=== PATIENT | male | born 1960 | race Caucasian/White ===

== ENCOUNTER 2016-06-14 10:45 | Outpatient (CLI) ==
[2013-12-22 20:53] VITALS: BMI 27.2
[2016-06-14 11:02] LABS: BASOPHILS % (AUTO) 0.7 % (0.0-3.0); EOSINOPHILS # (AUTO) 0.2 K/ul (0.0-0.7); EOSINOPHILS % (AUTO) 3.4 % (0.0-7.0); HEMATOCRIT 49.6 % (42.0-52.0); HEMOGLOBIN 16.6 g/dl (14.0-18.0); IMMATURE GRANULOCYTE % (AUTO) 0.3 % (0.0-5.0); LYMPHOCYTES # (AUTO) 1.5 K/uL (0.60-3.4); MEAN CORPUSCULAR HEMOGLOBIN 32.3 pg (27.0-31.0); MEAN CORPUSCULAR HGB CONC 33.5 (31.8-35.4); MEAN CORPUSCULAR VOLUME 96.5 fl (80.0-94.0); MONOCYTES # (AUTO) 0.5 K/uL (0.4-2.0); MONOCYTES % (AUTO) 8.6 (0-10); NEUTROPHILS # (AUTO) 3.8 K/ul (2.0-6.9); PLATELET COUNT 217 10^3/uL (140-440); RED BLOOD COUNT 5.14 10^6/ul (4.70-6.10); WHITE BLOOD COUNT 6.13 K/ul (4.2-10.2)
[2016-06-14 11:21] LABS: ALBUMIN 3.6 g/dL (3.4-5.0); BILIRUBIN,DIRECT 0.26 mg/dL (0.00-0.30); BILIRUBIN,TOTAL 0.7 mg/dL (0.00-1.20); CREATININE 1.2 mg/dL (0.60-1.10); TOTAL PROTEIN 6.7 g/dL (6.4-8.2)
== END 2016-06-14 10:46 | disposition home or self-care (01) ==
LOC: LAB 10:45
PROVIDERS: ATTEND Internal Medicine Rheumatology
DX: M06.9 Rheumatoid arthritis, unspecified (principal); Z79.899 Other long term (current) drug therapy
CPT/HCPCS: 36415; 80076; 82565; 84520; 85025

== ENCOUNTER 2016-09-13 10:14 | Outpatient (CLI) ==
[2013-12-22 20:53] VITALS: BMI 27.2
[2016-09-13 10:52] LABS: BASOPHILS % (AUTO) 0.5 % (0.0-3.0); EOSINOPHILS # (AUTO) 0.1 K/ul (0.0-0.7); EOSINOPHILS % (AUTO) 0.9 % (0.0-7.0); HEMATOCRIT 52.1 % (42.0-52.0); HEMOGLOBIN 17.7 g/dl (14.0-18.0); IMMATURE GRANULOCYTE % (AUTO) 0.5 % (0.0-5.0); LYMPHOCYTES # (AUTO) 1.3 K/uL (0.60-3.4); LYMPHOCYTES % (AUTO) 15.9 (10.0-50.0); MEAN CORPUSCULAR HEMOGLOBIN 31.9 pg (27.0-31.0); MONOCYTES # (AUTO) 0.4 K/uL (0.4-2.0); MONOCYTES % (AUTO) 5.1 (0-10); NEUTROPHILS # (AUTO) 6.1 K/ul (2.0-6.9); NEUTROPHILS % (AUTO) 77.1; PLATELET COUNT 233 10^3/uL (140-440); RED BLOOD COUNT 5.54 10^6/ul (4.70-6.10); WHITE BLOOD COUNT 7.88 K/ul (4.2-10.2)
[2016-09-13 11:12] LABS: ALBUMIN 3.6 g/dL (3.4-5.0); BILIRUBIN,DIRECT 0.18 mg/dL (0.00-0.30); BILIRUBIN,TOTAL 0.49 mg/dL (0.00-1.20); CREATININE 1.29 mg/dL (0.60-1.10)
== END 2016-09-13 10:15 | disposition home or self-care (01) ==
LOC: LAB 10:14
PROVIDERS: ATTEND Internal Medicine Rheumatology
DX: M06.9 Rheumatoid arthritis, unspecified (principal); Z79.899 Other long term (current) drug therapy
CPT/HCPCS: 36415; 80076; 82565; 84520; 85025

== ENCOUNTER 2016-12-15 10:34 | Outpatient (CLI) ==
[2013-12-22 20:53] VITALS: BMI 27.2
[2016-12-15 11:20] LABS: BASOPHILS # (AUTO) 0.1 K/uL (0-0.2); BASOPHILS % (AUTO) 0.6 % (0.0-3.0); EOSINOPHILS # (AUTO) 0.2 K/ul (0.0-0.7); EOSINOPHILS % (AUTO) 1.9 % (0.0-7.0); HEMATOCRIT 53.8 % (42.0-52.0); HEMOGLOBIN 18.7 g/dl (14.0-18.0); IMMATURE GRANULOCYTE % (AUTO) 0.4 % (0.0-5.0); LYMPHOCYTES # (AUTO) 1.4 K/uL (0.60-3.4); LYMPHOCYTES % (AUTO) 16.1 (10.0-50.0); MEAN CORPUSCULAR HEMOGLOBIN 32.6 pg (27.0-31.0); MEAN CORPUSCULAR HGB CONC 34.8 (31.8-35.4); MEAN CORPUSCULAR VOLUME 93.7 fl (80.0-94.0); MONOCYTES # (AUTO) 1.1 K/uL (0.4-2.0); MONOCYTES % (AUTO) 12.4 (0-10); NEUTROPHILS # (AUTO) 5.9 K/ul (2.0-6.9); NEUTROPHILS % (AUTO) 68.6; PLATELET COUNT 195 10^3/uL (140-440); RED BLOOD COUNT 5.74 10^6/ul (4.70-6.10); WHITE BLOOD COUNT 8.57 K/ul (4.2-10.2)
[2016-12-15 11:37] LABS: ALBUMIN 3.6 g/dL (3.4-5.0); ALBUMIN/GLOBULIN RATIO 1.13; ANION GAP 15.6; BILIRUBIN,DIRECT 0.21 mg/dL (0.00-0.30); BILIRUBIN,TOTAL 0.6 mg/dL (0.00-1.20); BUN/CREATININE RATIO 8.47; CREATININE 1.18 mg/dL (0.60-1.10); POTASSIUM 3.6 mmol/L (3.5-5.1); TOTAL PROTEIN 6.8 g/dL (6.4-8.2)
[2016-12-16 08:22] LABS: TESTOSTERONE 1061 ng/dL (348-1197)
== END 2016-12-15 10:35 | disposition home or self-care (01) ==
LOC: LAB 10:34
PROVIDERS: ATTEND Internal Medicine Rheumatology
DX: E29.1 Testicular hypofunction (principal); M06.9 Rheumatoid arthritis, unspecified; Z79.899 Other long term (current) drug therapy; Z12.5 Encounter for screening for malignant neoplasm of prostate
CPT/HCPCS: 36415; 80053; 82248; 84403; 85025

== ENCOUNTER 2017-02-14 14:40 | Outpatient (CLI) ==
[2013-12-22 20:53] VITALS: BMI 27.2
[2017-02-14 15:02] LABS: BASOPHILS # (AUTO) 0.1 K/uL (0-0.2); BASOPHILS % (AUTO) 0.9 % (0.0-3.0); EOSINOPHILS # (AUTO) 0.3 K/ul (0.0-0.7); EOSINOPHILS % (AUTO) 4.1 % (0.0-7.0); HEMATOCRIT 42.3 % (42.0-52.0); HEMOGLOBIN 15.2 g/dl (14.0-18.0); IMMATURE GRANULOCYTE % (AUTO) 0.5 % (0.0-5.0); LYMPHOCYTES # (AUTO) 1.7 K/uL (0.60-3.4); LYMPHOCYTES % (AUTO) 26.7 (10.0-50.0); MEAN CORPUSCULAR HEMOGLOBIN 32.1 pg (27.0-31.0); MEAN CORPUSCULAR HGB CONC 35.9 (31.8-35.4); MEAN CORPUSCULAR VOLUME 89.4 fl (80.0-94.0); MONOCYTES # (AUTO) 0.7 K/uL (0.4-2.0); MONOCYTES % (AUTO) 10.7 (0-10); NEUTROPHILS # (AUTO) 3.6 K/ul (2.0-6.9); NEUTROPHILS % (AUTO) 57.1; PLATELET COUNT 183 10^3/uL (140-440); RED BLOOD COUNT 4.73 10^6/ul (4.70-6.10); WHITE BLOOD COUNT 6.33 K/ul (4.2-10.2)
[2017-02-14 15:46] LABS: ALBUMIN 3.2 g/dL (3.4-5.0); ALBUMIN/GLOBULIN RATIO 0.97; ANION GAP 11.5; BILIRUBIN,DIRECT 0.12 mg/dL (0.00-0.30); BILIRUBIN,TOTAL 0.36 mg/dL (0.00-1.20); BUN/CREATININE RATIO 9.17; CALCIUM 9.7 mg/dL (8.2-10.2); CHOL/HDL RATIO 6.3 (4.5-6.4); CREATININE 1.09 mg/dL (0.60-1.10); POTASSIUM 3.5 mmol/L (3.5-5.1); TOTAL PROTEIN 6.5 g/dL (6.4-8.2)
[2017-02-15 06:10] LABS: TESTOSTERONE 331 ng/dL (264-916)
== END 2017-02-14 14:41 | disposition home or self-care (01) ==
LOC: LAB 14:40
PROVIDERS: ATTEND Internal Medicine Rheumatology
DX: Z51.81 Encounter for therapeutic drug level monitoring (principal); Z79.899 Other long term (current) drug therapy; R53.83 Other fatigue; E29.1 Testicular hypofunction; M06.9 Rheumatoid arthritis, unspecified
CPT/HCPCS: 36415; 80053; 80061; 82248; 84403; 84439; 84443; 85025

== ENCOUNTER 2017-06-07 11:37 | Outpatient (CLI) ==
[2013-12-22 20:53] VITALS: BMI 27.2
== END 2017-06-07 11:38 | disposition home or self-care (01) ==
LOC: LAB 11:37
PROVIDERS: ATTEND Internal Medicine Rheumatology
DX: E78.5 Hyperlipidemia, unspecified (principal); E29.1 Testicular hypofunction; M06.9 Rheumatoid arthritis, unspecified; Z79.899 Other long term (current) drug therapy
CPT/HCPCS: 36415; 80076; 85025

== ENCOUNTER 2017-06-20 10:49 | Outpatient (CLI) ==
[2013-12-22 20:53] VITALS: BMI 27.2
--- NOTE | 2017-06-20 13:56 | MRI ---
EXAM: MRI left shoulder without contrast. HISTORY: Possible torn ligament. No left shoulder surgery reported. Fall. Limited range of motion . TECHNIQUE: Using a local coil on a high field strength magnet multiplanar multisequence magnet reson ance imaging performed of the left shoulder without intravenous or intra-articular gadolinium contras t. COMPARISON: Four view plain film examination left shoulder 03/27/2012. FINDINGS: A predominate Type I acromion present. Coracoacromial ligament/arch intact without defini tive thickening. There is however a moderate degree of left acromioclavicular joint degenerative art hrosis/osteoarthrosis. Deltoid musculature shows some mild proximal strain. Free fluid throughout t he subacromial/subdeltoid space. Muscle bulk of the rotator cuff tear shows no overt atrophy. Marked diffuse supraspinatus tendinosis over the insertion and critical zone of view. Large full-thickness/full width supraspinatus tendon tear. Approximate 20 mm of distal tendon end retraction. This area of supraspinatus tendon tear jyothi sures 24 mm AP. Posterior to this level there is marked diffuse infraspinatus tendinosis with full-t hickness extension involving more cranial insertional infraspinatus tendon fibers. There are intact more posterior inferior/caudal infraspinatus tendon fibers. Inferior to this level there are intact teres minor tendon fibers. Anterior intact subscapularis tendon fibers. The long head of the biceps tendon shows intact fibers located in expected position within the bicipital groove and within mackenzie l limits signal intensity and morphology. The left humeral head seated. No left glenohumeral joint centered subchondral bone marrow edema or b one erosions. Early left glenohumeral joint osteoarthrosis. Left glenohumeral joint effusion. Left glenoid labrum grossly intact on this non-arthrographic examination. Left glenoid labrum grossly in tact on this non-arthrographic examination.. IMPRESSION: Moderate left acromioclavicular joint degenerative arthrosis/osteoarthrosis. Marked diffuse supraspinatus tendinosis. Large full-thickness/full width tear as described. Free fl uid throughout the subacromial/subdeltoid space. Posterior marked diffuse infraspinatus tendinosis w ith full-thickness tear extension involving more cranial insertional infraspinatus tendon fibers. Early left glenohumeral joint osteoarthrosis. Left glenohumeral joint effusion. Mild proximal deltoid muscle strain. Recommendation is obtainment and correlation with recent plain film radiographs of the left shoulder as none are available for comparison at the time of this dictation.
== END 2017-06-20 10:50 | disposition home or self-care (01) ==
LOC: RAD 10:49
PROVIDERS: ATTEND Family Medicine
DX: S49.92XA Unspecified injury of left shoulder and upper arm, initial encounter (principal)

== ENCOUNTER 2017-08-07 13:17 | Outpatient (CLI) ==
[2013-12-22 20:53] VITALS: BMI 27.2
== END 2017-08-07 13:18 | disposition home or self-care (01) ==
LOC: LAB 13:17
PROVIDERS: ATTEND Internal Medicine Rheumatology
DX: M06.9 Rheumatoid arthritis, unspecified (principal); Z79.899 Other long term (current) drug therapy
CPT/HCPCS: 36415; 80076; 85025

== ENCOUNTER 2017-11-28 10:48 | Outpatient (CLI) | payer OTHER ==
[2013-12-22 20:53] VITALS: BMI 27.2
== END 2017-11-28 10:49 | disposition home or self-care (01) ==
LOC: LAB 10:48
PROVIDERS: ATTEND Internal Medicine Rheumatology
DX: M06.9 Rheumatoid arthritis, unspecified (principal); Z79.899 Other long term (current) drug therapy
CPT/HCPCS: 36415; 80076; 85025

== ENCOUNTER 2018-01-06 10:47 | Emergency (ER) ==
[2018-01-06 10:50] VITALS: BP 146/92; TEMP 98.4; BMI 26.5
[2018-01-06] MEDS ORDERED: ALBUTEROL 0.083% NEB NEB STA (12:44)
--- NOTE | 2018-01-06 12:45 | ED.PDOC ---
General ED Provider: Dr. JOSUÉ OVIEDO Chief Complaint: Respiratory Complaint Stated Complaint: Cough and congestion prod of light green-brown phlegm with burning sensation in anterior chest with deep breathing and coughing. States he has a slight sore throat but denies fever. States he feels weak with generalize myalgias with weakness and bodyaches. Complains of nasal congestion with a sensatin he has inner ear problems. Time Seen by Physician: 12:20 Mode of Arrival: Walk-In Information Source: Patient Exam Limitations: No limitations Primary Care Provider: FEDERICO CHILDERS Nursing and Triage Documentation Reviewed and Agree: Yes Does patient meet sepsis criteria?: No System Inflammatory Response Syndrome: Not Applicable Sepsis Protocol: For patient's 13 years and over: Temp is 96.8 and below OR 101 and greater Pulse >90 BPM Resp >20/minute Acutely Altered Mental Status Are patient's symptoms suggestive of a new infection, such as: -Pneumonia -Skin, Soft Tissue -Endocarditis -UTI -Bone, Joint Infection -Implantable Device -Acute Abdominal Infection -Wound Infection -Meningitis -Blood Stream Catheter Infection -Unknown Respiratory Complaint Exam - Respiratory Complaint/Exam Onset/Duration: 2-3 days Symptoms Are: Still present, Worse Timing: Constant Initial Severity: Mild Current Severity: Moderate Location: Nose, Throat, Chest Character: Reports: Productive cough Aggravating: Reports: URI Alleviating: Reports: Upright position Associated Signs and Symptoms: Reports: Dizziness, Nasal congestion, Sore throat Related History: Denies: Similar episode Related Surgical History: Reports: None Pulmonary Embolism Risk Factors: None Cardiac Risk Factors: Reports: None Pseudomonas Risk Factors: Reports: None Tuberculosis Risk Factors: Reports: None Home Oxygen Use: No Recent Stress Test: No Recent Echo/LV Function: No Current Antibiotic Use: No Current Asthma Medication Use: No Respiratory Distress: None Inadequate Respiratory Effort: No Dysphagia Present: No Stridor Present: No JVD Present: No Accessory Muscle Use: No Retractions: Not Present Diminished Breath Sounds: No Sinus Tenderness: None Grunting Respirations: No Kussmaul Respirations: No Differential Diagnoses: URI Review of Systems - Review Of Systems Constitutional: Reports: No symptoms, Malaise Eyes: Reports: No symptoms Ears, Nose, Mouth, Throat: Reports: No symptoms, Ear pain (fullness) Respiratory: Reports: Cough Cardiac: Reports: No symptoms GI: Reports: No symptoms : Reports: No symptoms Musculoskeletal: Reports: No symptoms Skin: Reports: No symptoms Neurological: Reports: No symptoms Endocrine: Reports: No symptoms Hematologic/Lymphatic: Reports: No symptoms All Other Systems: Reviewed and Negative Past Medical History - Past Medical History Previously Healthy: Yes Endocrine: Reports: None Cardiovascular: Reports: None Respiratory: Reports: None Hematological: Reports: None Gastrointestinal: Reports: None Genitourinary: Reports: None Neuro/Psych: Reports: None Musculoskeletal: Reports: None Cancer: Reports: None - Surgical History General Surgical History: Reports: Appendectomy - Family History Family History: Reports: Unknown - Social History Smoking Status: Former smoker Hx Substance Use: No Alcohol Screening: None Physical Exam - Physical Exam Appearance: No pain distress, Well-nourished (Post nasal drainage) Ill-appearing: Mild Pain Distress: None Eyes: KATELYN ENT: Ears normal, Nose normal, Oropharynx normal, Erythema (TM's sl full /no erythrema) Neck: Supple Respiratory: Airway patent, Breath sounds equal Cardiovascular: RRR, Pulses normal, No rub, No murmur GI/: Soft, Nontender, No masses, Bowel sounds normal, No Organomegaly Musculoskeletal: Normal strength, ROM intact, No edema, No calf tenderness Skin: Warm, Dry, Normal color Neurological: Sensation intact, Motor intact, Reflexes intact, Cranial nerves intact, Alert, Oriented Psychiatric: Affect appropriate, Mood appropriate Interpretation - Radiology Interpretation Radiology Interpretation By: Radiologist Radiology Results: No acute changes Exam Interpreted: CXR Xray Comments: Normal Critical Care Note - Critical Care Note Total Time (mins): 0 Course - Course Hematology/Chemistry: 01/06/18 13:00 01/06/18 13:00 Orders, Labs, Meds: Lab Review 01/06/18 01/06/18 13:00 13:00 WBC 11.77 H RBC 5.08 Hgb 15.8 Hct 47.0 MCV 92.5 MCH 31.1 H MCHC 33.6 RDW Coeff of Jose E 14.9 H Plt Count 210 Immature Gran % (Auto) 0.6 Neut % (Auto) 77.4 Lymph % (Auto) 8.8 L Dare % (Auto) 12.5 H Eos % (Auto) 0.4 Baso % (Auto) 0.3 Immature Gran # (Auto) 0.1 Neut # (Auto) 9.1 H Lymph # (Auto) 1.0 Dare # (Auto) 1.5 Eos # (Auto) 0.1 Baso # (Auto) 0.0 Sodium 138 Potassium 3.4 L Chloride 102 Carbon Dioxide 28 Anion Gap 11.4 BUN 7 Creatinine 1.03 Estimated GFR (MDRD) 75.00 BUN/Creatinine Ratio 6.79 Glucose 103 H Calcium 9.9 Total Bilirubin 0.5 AST 15 ALT 20 Alkaline Phosphatase 103 Total Creatine Kinase 52 Troponin I < 0.0100 Total Protein 7.3 Albumin 3.6 Globulin 3.7 Albumin/Globulin Ratio 0.97 Orders Category Date Time Status EKG-(ED ONLY) Stat CARDIO 01/06/18 12:44 Completed NEBULIZER TREATMENT Stat CARDIO 01/06/18 12:45 Completed CBC W/ AUTO DIFF Stat LAB 01/06/18 13:00 Completed COMPREHENSIVE METABOLIC PANEL Stat LAB 01/06/18 13:00 Completed CPK [CREATINE KINASE] Stat LAB 01/06/18 13:00 Completed TROPONIN I Stat LAB 01/06/18 13:00 Completed Albuterol Sulfate 0.083% Neb [Albuterol 0.083% Neb] MEDS 01/06/18 12:44 Discontinued 1 vial NEB ONCE STA CHEST, 2 VIEWS PA & LAT Stat RADS 01/06/18 12:44 Completed Medications Discontinued Medications Generic Name Dose Route Start Last Admin Trade Name Freq PRN Reason Stop Dose Admin Albuterol Sulfate 1 vial 01/06/18 12:44 01/06/18 13:08 Albuterol 0.083% Neb NEB 01/06/18 12:45 1 vial ONCE STA Administration Vital Signs: Temp Pulse Resp BP Pulse Ox 01/06/18 10:48 98.4 F 76 16 146/92 H 94 L Departure - Departure Time of Disposition: 14:50 Disposition: HOME SELF-CARE Discharge Problem: URI (upper respiratory infection), Pain of anterior chest wall with respiration Instructions: Upper Respiratory Infection (ED) Condition: Good Pt referred to PMD for follow-up: Yes (1 week) IPMP verified?: No Additional Instructions: Take Robitussin DM 2 tsp every four hours for coughing and congestion Ibuprofen 200 mg take 3 tabs every 6 hours Take meds as directed Seek follow up care with PCP Prescriptions: Azithromycin [Zithromax] 250 mg PO DAILY #6 tablet Allergies/Adverse Reactions: Allergies No Known Allergies Allergy (Verified 01/06/18 10:51) Home Medications: Ambulatory Orders Cyclobenzaprine HCl [Flexeril] 10 mg PO TID 12/22/13 Hydrocodone/Acetaminophen [[place] 10-325 Tablet] 1 tab PO TID 12/22/13 Nifedipine [Procardia Xl] 30 mg PO DAILY 12/22/13 Tramadol HCl [Ultram] 100 mg PO DAILY 12/22/13 Azithromycin [Zithromax] 250 mg PO DAILY #6 tablet 01/06/18 Certolizumab Pegol [Cimzia] 400 mg SQ DIRECTED 01/06/18 Leflunomide [Arava] 20 mg PO DAILY 01/06/18 Prednisone 5 mg PO DAILY 01/06/18 Disposition Discussed With: Patient
--- NOTE | 2018-01-06 14:54 | DI ---
Exam: Two views of the chest. Comparison: 12/22/2013. Reason for exam: Chest burning and cough. FINDINGS: No pneumothorax, pleural effusion, or focal consolidation. The cardiac silhouette is not enlarged. The imaged osseous structures appear grossly unremarkable without acute fracture. Impression: No acute cardiopulmonary process.
== END 2018-01-06 15:29 | disposition home or self-care (01) ==
LOC: ED 10:47
DX: J06.9 Acute upper respiratory infection, unspecified (principal); R07.1 Chest pain on breathing
CPT/HCPCS: 36415; 80053; 82550; 84484; 85025; 93005; 93010; 94640; 99283

== ENCOUNTER 2018-03-14 11:41 | Outpatient (CLI) | payer OTHER | END 2018-03-14 11:42 | disposition home or self-care (01) | LOC: LAB 11:41 | PROVIDERS: ATTEND Internal Medicine Rheumatology | DX: M06.9 Rheumatoid arthritis, unspecified (principal); Z79.899 Other long term (current) drug therapy | CPT/HCPCS: 36415; 80076; 85025 ==

== ENCOUNTER 2018-06-26 10:04 | Outpatient (CLI) | END 2018-06-26 10:05 | disposition home or self-care (01) | LOC: LAB 10:04 | PROVIDERS: ATTEND Internal Medicine Rheumatology | DX: Z51.81 Encounter for therapeutic drug level monitoring (principal); Z79.899 Other long term (current) drug therapy; M06.9 Rheumatoid arthritis, unspecified; E29.1 Testicular hypofunction | CPT/HCPCS: 36415; 80076; 82947; 83036; 84403; 85025 ==

== ENCOUNTER 2018-08-29 08:21 | Outpatient (CLI) | END 2018-08-29 08:22 | disposition home or self-care (01) | LOC: LAB 08:21 | PROVIDERS: ATTEND Internal Medicine Endocrinology, Diabetes & Metabolism | DX: R53.83 Other fatigue (principal); E78.5 Hyperlipidemia, unspecified; N20.0 Calculus of kidney; E29.1 Testicular hypofunction; E11.9 Type 2 diabetes mellitus without complications; E55.9 Vitamin D deficiency, unspecified; Z12.5 Encounter for screening for malignant neoplasm of prostate | CPT/HCPCS: 36415; 80053; 83001; 83002; 83036; 83970; 84146; 84305; 84402; 84403; 84439; 84443; 85025 ==

== ENCOUNTER 2018-09-24 15:26 | Outpatient (CLI) | END 2018-09-24 15:27 | disposition home or self-care (01) | LOC: LAB 15:26 | PROVIDERS: ATTEND Internal Medicine Rheumatology | DX: M06.9 Rheumatoid arthritis, unspecified (principal); Z79.899 Other long term (current) drug therapy | CPT/HCPCS: 36415; 80076; 85025 ==